=== PATIENT | female | born 1985 | race African-American/Black ===

== ENCOUNTER 2016-09-22 03:26 | Emergency (ER) | payer SELFPAY ==
[~2016-09-22] VITALS: Ht 157.5 cm; Wt 113.4 kg
[~2016-09-22 03:26] MED LIST: NITR100C62 PO
[2016-09-22 03:37] VITALS: BP 150/78
--- NOTE | 2016-09-22 03:37 | PHYS DOC ---
Past Medical History Past Medical History: Constipation, Other Past Surgical History: Additional Past Surgical Histo: x4 Alcohol Use: Occasionally Drug Use: None Adult General Chief Complaint Chief Complaint: ITCHING HPI HPI Patient is a 31 year old female who presents with for evaluation of itchy rash for the past one hour. She was in bed when itching started. Rash is mainly on her legs, but she states it is diffuse. She denies dyspnea, cough, throat swelling, nausea, fever or chills, abdominal pain. No known new exposure. No sick contacts. Has not taken any medication prior to arrival. Review of Systems Review of Systems Constitutional: Denies fever or chills [] Eyes: Denies change in visual acuity, redness, or eye pain [] HENT: Denies nasal congestion or sore throat [] Respiratory: Denies cough or shortness of breath [] Cardiovascular: No additional information not addressed in HPI [] GI: Denies abdominal pain, nausea, vomiting, bloody stools or diarrhea [] : Denies dysuria or hematuria [] Musculoskeletal: Denies back pain or joint pain [] Integument: Denies skin lesions [] Neurologic: Denies headache, focal weakness or sensory changes [] Endocrine: Denies polyuria or polydipsia [] Current Medications Current Medications Current Medications Medications (Trade) Dose Ordered Sig/[facility] Start Time Stop Time Status Last Admin Dose Admin Dexamethasone (Decadron) 8 mg 1X ONCE 09/22/16 04:00 09/22/16 04:01 Diphenhydramine HCl (Benadryl) 25 mg 1X ONCE 09/22/16 04:00 09/22/16 04:01 Allergies Allergies Allergies Coded Allergies Type Severity Reaction Last Updated Verified No Known Drug Allergies 04/12/14 No Physical Exam Physical Exam Constitutional: Well developed, well nourished, no acute distress, non-toxic appearance. [] HENT: Normocephalic, atraumatic, bilateral external ears normal, oropharynx moist, no oral exudates, nose normal. [] Eyes: PERRLA, EOMI. [] Neck: Normal range of motion, supple, no stridor. [] Cardiovascular:Heart rate regular rhythm [] Lungs & Thorax: Bilateral breath sounds clear to auscultation [] Abdomen: Bowel sounds normal, soft, no tenderness. [] Skin: Warm, dry, no erythema. Extremities and trunk and face with papular rash, blanches, nontender, diffuse excoriations to extremities [] Back: Normal range of motion. [] Extremities: No tenderness, ROM intact, no edema. [] Neurologic: Alert and oriented X 3, normal motor function, normal sensory function, no focal deficits noted. [] Psychologic: Affect normal, judgement normal, mood normal. [] Course & Med Decision Making Course & Med Decision Making Appears well on exam. Discussed supportive care. Return precautions given. She understands and agrees with plan. Dragon Disclaimer Dragon Disclaimer This electronic medical record was generated, in whole or in part, using a voice recognition dictation system. Departure Departure Impression: Primary Impression: Pruritic rash Disposition: HOME, SELF-CARE Condition: STABLE Referrals: UNKNOWN PCP NAME (PCP) Patient Instructions: Rash, [id number] Additional Instructions: Take Benadryl as needed for itching. Follow-up with your primary care doctor. Return for any concerns. Lashay NGUYEN MD Sep 22, 2016 03:37
[2016-09-22] MEDS ORDERED: DEXAMETHASONE 4 MG TABLET PO ONE (04:00)
[2016-09-22] MEDS ORDERED: diphenhydrAMINE HCL 25 MG CAPSULE PO ONE (04:00)
== END 2016-09-22 03:46 | disposition home or self-care (01) ==
LOC: ER 03:26
DX: L29.9 Pruritus, unspecified (principal)
CPT/HCPCS: 99283; J8540; Q0163